=== PATIENT | male | born 1990 | race Caucasian/White ===

== ENCOUNTER 2018-02-18 20:19 | Emergency (ER) | payer SELFPAY ==
[2018-02-18 20:30] VITALS: BP 124/71; PULSE 84; TEMP 99.6; BMI 22.1
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
--- NOTE | 2018-02-18 21:22 | PDOC ---
*Physical Exam - Vital Signs Last Vital Signs Temp Pulse Resp BP Pulse Ox 99.6 F 84 18 124/71 98 02/18/18 20:26 02/18/18 20:26 02/18/18 20:26 02/18/18 20:26 02/18/18 20:26 Medical Decision Making - Medical Decision Making 02/18/18 21:21 Pt seen by the Advanced Practice Provider under my direct supervision Ancillary studies reviewed I agree with plan as outlined by the Advanced Practice Provider BRANDON Batista *DC/Admit/Observation/Transfer Diagnosis at time of Disposition: Closed right hand fracture, Contusion of knee, right, Lumbar spine pain, Sprain of left wrist, Abrasion, Contusion of right elbow, initial encounter - Discharge Dispostion Disposition: HOME Condition at time of disposition: Stable - Referrals Referrals: Nicole Clarke [Primary Care Provider] - - Patient Instructions Printed Discharge Instructions: DI for Low Back Pain, DI for a Hand Fracture, DI for Contusion, DI for Abrasion Additional Instructions: Rest Ice Elevate Tylenol alternating with Motrin as needed for pain You must follow with the orthopedic surgeon Clean your abrasions with soap and water since you refused to have me do it in the emergency department Return back to the ER for severe/persistent or worsening symptoms - Post Discharge Activity
== END 2018-02-18 22:34 | disposition home or self-care (01) ==
LOC: JER 20:19
PROC: 2W3CX1Z Immobilization of Right Lower Arm using Splint (ICD-10-PCS; principal; 2018-02-18)
DX: S69.82XA Other specified injuries of left wrist, hand and finger(s), initial encounter (principal); S62.346A Nondisplaced fracture of base of fifth metacarpal bone, right hand, initial encounter for closed fracture; S50.01XA Contusion of right elbow, initial encounter; S80.01XA Contusion of right knee, initial encounter; S63.592A Other specified sprain of left wrist, initial encounter; V86.06XA Driver of dirt bike or motor/cross bike injured in traffic accident, initial encounter; Y93.89 Activity, other specified; Y92.414 Local residential or business street as the place of occurrence of the external cause; Y99.8 Other external cause status
CPT/HCPCS: 72100-TC-FY; 73070-TC-RT-FY; 73110-TC-LR-FY; 73130-TC-RT-FY; 73560-TC-RT-FY; 99282-25